=== PATIENT | male | born 1955 | race Caucasian/White ===

== ENCOUNTER 2016-08-23 11:47 | Inpatient (IN) | payer OTHER ==
[~2016-08-23] VITALS: Ht 175.3 cm; Wt 106.4 kg
[~2016-08-23 11:47] MED LIST: ALBU1AER9 INH; ASPI81TA21 PO; CLOP1TAB15 PO; FLUT50SP14 NAE; LISI-461 PO; LORA10CA2 PO; LPT/40 PO; MCR5 PO; METF850T PO; METO25TA56 PO
[2016-08-23 14:37] VITALS: BP 115/74; PULSE 69; TEMP 36.9; O2SAT 98; BMI 34.0
[2016-08-23] MEDS ORDERED: NITROGLYCERIN 0.4 MG SL PER TAB CHARGE SL PRN (14:45)
[2016-08-23] MEDS ORDERED: ONDANSETRON INJ 2 MG/ML 2 ML VIAL IV PRN (14:45)
[2016-08-23] MEDS ORDERED: ACETAMINOPHEN 325 MG TAB PO PRN (14:45)
[2016-08-23] MEDS ORDERED: PATIENT'S HEIGHT AND/OR WEIGHT NEEDED SCH (14:50)
[2016-08-23] MEDS ORDERED: INSDGIPEN SC (15:33)
[2016-08-23] MEDS ORDERED: ONDA8TAB62 SL (15:33)
[2016-08-23] MEDS ORDERED: OMEP40CA41 PO (15:33)
[2016-08-23 15:34] LABS: BASO % 0.4 %; BASO ABS # 0.04 K/uL (0-0.2); EOS % 1.9 %; HEMATOCRIT 38.3 % (42-52); IG% 0.3 %; LYMPH % 27.1 %; LYMPH ABS # 2.62 K/uL (1.2-3.4); MEAN CELL VOLUME 92.3 fL (80-100); MEAN CORPUSCULAR HEMOGLOBIN 32.8 pg (25-34); MEAN PLATELET VOLUME 9.8 fL (7.4-10.4); MONO % 6.3 %; PLATELET COUNT 242 K/uL (130-400); RED BLOOD COUNT 4.15 M/uL (4.7-6.1); WHITE BLOOD COUNT 9.68 K/uL (4.8-10.8)
[2016-08-23 15:35] LABS: COMPLETE YES; MEAN CORPUSCULAR HGB CONC 35.5 g/dl (32-36)
[2016-08-23] MEDS ORDERED: GLUCOSE 40% GEL 15 GM TUBE PO PRN (15:45)
[2016-08-23] MEDS ORDERED: GLUCOSE 10 TABS/TUBE PO PRN (15:45)
[2016-08-23] MEDS ORDERED: GLUCAGON FOR INJ 1 MG VIAL SQ PRN (15:45)
[2016-08-23] MEDS ORDERED: DEXTROSE 50% 50 ML SYR IV PRN (15:45)
[2016-08-23 15:49] LABS: INR 0.9 (0.9-1.1); PARTIAL THROMBOPLASTIN RATIO 0.9
[2016-08-23 16:00] VITALS: O2SAT 98
[2016-08-23 16:00] LABS: ALB/GLOB RATIO 1.1 (0.9-2); BUN/CREATININE RATIO 11.8 (10-20); CALCIUM 8.4 mg/dl (8.5-10.1); CKMB/CK RATIO 8.4 (0-3.0); CREATININE 1.5 mg/dl (0.60-1.40); POTASSIUM 4.5 mmol/L (3.5-5.1)
[2016-08-23] MEDS ORDERED: NITROGLYCERIN OINT 2% 1GM PACKET EXT SCH (16:00)
[2016-08-23] MEDS ORDERED: SODIUM CHLORIDE 0.9% 1000ML 1,000 ML IV SCH (16:00)
[2016-08-23] MEDS ORDERED: PHARMACY GLYCEMIC MGMT CONSULT PRN (16:09)
--- NOTE | 2016-08-23 16:09 | Pharmacy Progress Note ---
Glycemic Control Intl Consult Date of Service August 23, 2016. Scope Glycemic Pharmacist consulted by Shavonne Wilcox on 08/23/2016 for glycemic control and to write orders per [facility] inpatient glycemic control protocol Objective Weight (Kilograms): 104.500 Accuchecks BSG (last 24hrs): Test 08/23/16 15:25 Laboratory Data (last 24hrs) Test 08/23/16 15:25 White Blood Count 9.68 K/uL Red Blood Count 4.15 M/uL Hemoglobin 13.6 g/dL Hematocrit 38.3 % Mean Corpuscular Volume 92.3 fL Mean Corpuscular Hemoglobin 32.8 pg Mean Corpuscular Hemoglobin Concent 35.5 g/dl Platelet Count 242 K/uL Mean Platelet Volume 9.8 fL Neutrophils (%) (Auto) 64.0 % Lymphocytes (%) (Auto) 27.1 % Monocytes (%) (Auto) 6.3 % Eosinophils (%) (Auto) 1.9 % Basophils (%) (Auto) 0.4 % Neutrophils # (Auto) 6.20 K/uL Lymphocytes # (Auto) 2.62 K/uL Monocytes # (Auto) 0.61 K/uL Eosinophils # (Auto) 0.18 K/uL Basophils # (Auto) 0.04 K/uL HbA1c Test 08/23/16 15:25 Recent Pertinent Medications Outpatient Anti-diabetic Regimen: * Lantus 20 units qHS (confirmed with patient); Diabeta 10 mg BID and metformin 850 mg PO BID * A1c = 6.4 % 01/12/2016 Risk Factors for Insulin Resistance: * patient just had NSTEMI * Diet: type 2 diabetic diet Assessment & Plan ASSESSMENT: * ADA & AACE recommend a goal blood sugar range 140-180 mg/dl for the majority of critically ill & non-critically ill patients. However, more stringent targets may be selected in individual cases. Will utilize more stringent goal of 110-140 mg/dl based on patient age & comorbidities. Additionally, tighter glycemic control is warranted to facilitate recovery from NSTEMI. * Mr Christianson is a direct admission from [facility] after having an NSTEMI. Per Pedro, the patient home regimen keeps him well controlled with an A1C of 6.4%. I confirmed the home Lantus dose with the patient as there was notation for an increasing dose in the MAR. * Due to the patient's illness, I utilized a more strict correctional insulin with a weight-based stress of 2 insulin. The Lantus dose was decreased to 15 units as I was unsure if the patient would require less while hospitalized ( home regimen appears basal heavy). In order to ensure excellent blood sugar control, I ordered overnight Accuchecks. PLAN FOR INPATIENT GLYCEMIC CONTROL: * Holding outpatient oral diabetes medications * Basal insulin with LANTUS 15 units SQ qHS * Correctional Insulin with NOVOLOG per scale ACHS * Goal Range: Low 110 mg/dL - High 140 mg/dL * Correction Factor: 20 mg/dL/unit * Nutritional / Prandial insulin per carb ratio of 1 unit per 7 grams CHO consumed * Please note that the plan above was derived based on current level of insulin resistance and hospital stress. These recommendations are appropriate for inpatient admission only. Plan of care upon discharge will need to be reassessed to avoid potential outpatient hypo/hyperglycemia. Thank you.
[2016-08-23] MEDS: INSULIN ASPART 100 UNITS/ML 3 ML PEN SC SCH ×3 (16:15→23:34)
[2016-08-23] MEDS ORDERED: NURSING VERBAL MED ORDER ONE (16:30)
--- NOTE | 2016-08-23 16:35 | CARDIOLOGY CONSULTATION ---
DATE OF CONSULTATION: 08/23/2016 REFERRING PHYSICIAN: Pedro valle. REASON FOR CONSULTATION: NSTEMI. CHIEF COMPLAINT ON ADMISSION: Chest discomfort. HISTORY OF PRESENT ILLNESS: Mr. Christianson is a 61-year-old gentleman with a history of coronary artery disease and prior inferior infarction, status post RCA stenting. He developed chest discomfort in the a.m. of 08/22/2016. He described tightness as well as a heartburn-like feeling. The pain eventually radiated down his bilateral upper extremities. He was brought to the Emergency Department at [facility]. He was administered supplemental oxygen, which improved his symptoms. Initial troponin was undetectable; however, repeat the troponins were subsequently elevated. His peak troponin was approximately 11. He was transferred to [facility] for further evaluation and treatment. Currently, the patient is resting comfortably. Denies chest pain at this time. Family is present at the bedside. reports issues with intermittent discoloration, describing him as ashen on several occasions over the past few weeks. The patient denies any change in his functional capacity. He admits to noncompliance with all medications for approximately 2 weeks. REVIEW OF SYSTEMS: The pertinent positives noted above. A comprehensive 10-system review is otherwise negative. PAST MEDICAL HISTORY: 1. Chronic CAD with prior drug-eluting stent implantation to the right coronary artery. 2. Chronic kidney disease, stage III. 3. Diabetes, type 2. 4. Noncompliance. 5. Dyslipidemia. 6. GERD. PAST SURGICAL HISTORY: Cardiac catheterization, status post drug eluting stent implantation to the right coronary artery. SOCIAL HISTORY: Former tobacco abuse, [id number] history. He quit in 1990. Denies alcohol or illicit drug use. FAMILY HISTORY: Negative for premature CAD or sudden cardiac . ALLERGIES: No known drug allergies. OUTPATIENT MEDICATIONS: 1. Glyburide 5 mg 2 tablets in the a.m. and 2 tablets in the evening. 2. Glucophage 850 mg twice daily. 3. Lantus 20 mg subQ. 4. Lipitor 80 mg daily. 5. Lisinopril 5 mg daily. 6. Toprol-XL 12.5 mg daily. 7. Aspirin 81 mg daily. LABORATORY DATA: Creatinine 1.71 on 08/22/2016. White blood cell count 9.9, hemoglobin 13.6, and platelet count 238. Peak troponin 11.50. LDL is 170. ECG on presentation, 08/22/2016 demonstrates sinus rhythm with age indeterminate inferior infarct. PHYSICAL EXAMINATION: VITAL SIGNS: Temperature is 36.9 degrees centigrade, pulse 69 beats per minute and regular, respiratory rate is 16 breaths per minute, blood pressure 115/74 and SaO2 is 98% on 2 liters. GENERAL: NAD, awake, alert and oriented x3. THROAT: His mucous membranes are moist. No scleral icterus. Conjunctivae pink. NECK: Supple. No JVD, no HJR, and no carotid bruit. HEART: Regular with a normal S1 and S2. There is no murmur, rub, or gallop. LUNGS: Clear without rales, rhonchi or wheeze. ABDOMEN: Soft and nontender. There is no rebound or guarding. EXTREMITIES: Warm and dry. There is no clubbing, cyanosis, or edema. Dorsalis pedis pulses are 2/4. He has a 2/4 right-sided radial pulse. His ulnar pulses are not palpable on the right side. His Vijay test is abnormal on the right. Left upper extremity Vijay test was normal with palpable radial and ulnar pulses. NEUROLOGIC: Demonstrates no focal deficit. FINAL IMPRESSION: 1. [id number] elevation myocardial infarction. 2. Noncompliance. 3. Diabetes type 2, requiring insulin. 4. Dyslipidemia - uncontrolled. 5. Former tobacco abuse. 6. 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 7. Acute on chronic renal insufficiency. PLAN AND RECOMMENDATIONS: A resting 2D transthoracic echo has been ordered with results pending at this time. Intravenous heparin has been ordered and will be administered with bolus. 1/2 inch nitro paste will be applied. Other cardiovascular medications including beta-chica, aspirin, and statin therapy will be restarted. The risks, benefits and alternatives to cardiac catheterization with percutaneous intervention indicated were discussed at length with the patient and family at the bedside. They are agreeable to procedure. A Barbeau will be performed in his right upper extremity in the a.m. Intravenous hydration has been initiated. A repeat basic metabolic panel will be performed in the a.m. prior to procedure. Thank you for allowing me to take part in the care of your patient.
--- NOTE | 2016-08-23 16:54 | History and Physical ---
History & Physical Date & Time of Service: August 23, 2016 at 15:30 Chief Complaint: Myocardial Infarction Primary Care Physician: Lisandro Emanuel M.D. History of Present Illness Source: patient, spouse ( at bedside), clinic records, hospital records ( [facility]) This is a 61 year old male with PMH of CAD s/p JENNIFER to RCA in 2011, DM type 2, dyslipidemia, GERD, medication non-compliance, who presents as a transfer from [facility] for NSTEMI. Patient was admitted yesterday to [facility] after presenting with chest pain. CXR yesterday at [facility] was unremarkable. EKG 08/22/16 at [facility] showed sinus rhythm with 1st degree AVB, possible age indeterminate inferior infarct, and T wave inversion in III, no ST changes. Initial troponin was negative but trended up to 2.05 yesterday evening and 11.5 this morning. Creat was elevated to 1.7 at [facility] yesterday. Baseline creat is 1.4. LDL was 170. Patient's blood sugar was elevated in 300s- 400s. Yesterday evening at outside hospital patient was given ASA 324 mg and 500 mL NSS. This morning at outside hospital patient was given Toprol 12.5 mg, lisinopril 5 mg, aspirin 81 mg, and Lipitor 80 mg. He was on Heparin SQ for DVT prophylaxis. Heparin drip was ordered but not administered prior to transfer. Patient states chest pain started at 3 pm yesterday while he was active covering his boat and carrying plants. Pain was located in substernal area with radiation to bilateral arms and between his shoulder blades. He describes pain as tightness and "indigestion". He states it felt similar to prior [place]. He reports associated SOB, diaphoresis, and dizziness. states his color appeared ashen. Chest pain and associated symptoms resolved after 5 hours. He is usually able to climb 1 flight of stairs, burgos, fish, garden without CP or KUMAR. Patient was nauseous earlier today, which is a chronic intermittent problem for him, which resolved with Zofran given at [facility]. Currently he is chest pain free and otherwise feeling comfortable lying in bed. Denies fever, chills, URI symptoms, cough, orthopnea, palpitations, reflux, vomiting, abdominal pain, diarrhea, dysuria, frequency, calf pain, edema, history of abnormal bleeding. Pt reports noncompliance with all medications for approximately 2 weeks. States he does not like taking pills. Has not been checking blood sugar at home. Past Medical/Surgical History Medical Problems: (1) Anemia Status: Chronic (2) CAD (coronary artery disease) Status: Chronic (3) CHRONIC RHINITIS Status: Chronic (4) CKD (chronic kidney disease), stage III Status: Chronic (5) DIAB CANDIS WO COMPL, TYPE II OR UNSPEC TYPE, NOT UNCNTRLD Status: Chronic (6) Diabetic renal disease Status: Chronic (7) GERD (gastroesophageal reflux disease) Status: Chronic (8) Hyperlipidemia Status: Chronic (9) Myocardial infarction Status: Resolved (10) repair acetabular R fx Status: Resolved Surgical Problems: (1) H/O cardiac catheterization Status: Resolved (2) H/O colonoscopy Status: Resolved (3) History of cholecystectomy Status: Resolved (4) History of tonsillectomy Status: Resolved (5) S/P coronary artery stent placement Permanent Comment: 12/2011 Right coronary artery JENNIFER Status: Resolved Family History FH: CAD (coronary artery disease) FATHER ([place], age 50) UNCLE ([place], age 38) Hypertension FATHER Social History Smoking Status: Former Smoker (quit in 1989) Alcohol Use: none Drug Use: other (prior marijuana approx 30 years ago) Marital Status: Housing status: lives with significant other Occupational Status: disabled Immunizations History of Influenza Vaccine: No History of Tetanus Vaccine?: Yes Tetanus Immunization Date: Nov 30, 2010 History of Pneumococcal: No History of Hepatitis B Vaccine: No Multi-Drug Resistant Organisms History of MDRO: No Allergies Coded Allergies: No Known Allergies (Unverified , 10/30/02) Home Medications Scheduled Aspirin Enteric Coated (Ecotrin Or Generic), 81 MG PO DAILY Atorvastatin (Lipitor), 80 MG PO QAM Glyburide (Diabeta *), 10 MG PO BID Insulin Glargine (Lantus Solostar), 20 UNIT SC HS Lisinopril (Zestril), 5 MG PO DAILY Metformin Hcl (Glucophage), 850 MG PO BIDM Metoprolol Tartrate (Lopressor) (Lopressor), 12.5 MG PO BID Omeprazole (Prilosec), 40 MG PO DAILY Scheduled PRN Loratadine (Claritin), 10 MG PO DAILY PRN for Nasal Congestion Ondansetron Odt (Zofran Odt), 8 MG SL BID PRN for Nausea Review of Systems Constitutional: + sweats, No chills, No fever Eyes: No worsening of vision ENT: No nasal symptoms Respiratory: + shortness of breath, No cough Cardiovascular: + chest pain, No edema, No palpitations Abdomen: + nausea (chronic intermittent), No GI bleeding, No diarrhea, No pain , No vomiting Musculoskeletal: + problem reported (chronic intermittnet right thigh pain s/p hip fracture), No calf pain Genitourinary - Male: No dysuria, No urinary frequency Neurologic: + problem reported (dizziness- resolved) Hematologic / Lymphatic: No abnormal bleeding/bruising Integumentary: No rash Physical Exam Vital Signs Date Time Temp Pulse Resp B/P Pulse Ox O2 Delivery O2 Flow Rate FiO2 08/23/16 14:37 36.9 69 16 115/74 98 Nasal Cannula 2.0 General Appearance: WD/WN, no apparent distress, + pertinent finding (alert cooperative 61 year old male, lying in bed, no distress, at bedside) Head: normocephalic, atraumatic Eyes: normal inspection ENT: hearing grossly normal, pharynx normal Neck: no JVD, trachea midline Respiratory/Chest: lungs clear, normal breath sounds, no respiratory distress, no accessory muscle use Cardiovascular: regular rate, rhythm (distant heart sounds), no murmur, normal peripheral pulses Abdomen/GI: normal bowel sounds, non tender, soft Extremities/Musculoskelatal: no calf tenderness, normal capillary refill, no pedal edema Neurologic/Psych: alert, normal mood/affect, oriented x 3, + pertinent finding (no focal deficit on gross examination) Skin: normal color, warm/dry, no rash (no rash on the chest) Diagnostics Laboratory Results Results Past 24 Hours Test 08/23/16 14:40 Range/Units Creatine Kinase MB Ratio 0-3.0 EKG NSR, possible prior inferior infarct, T wave inversion in III and aVF, no ST changes Impression Assessment and Plan NSTEMI History of CAD s/p JENNIFER to RCA in 2011 with diffuse residual disease Has been noncompliant with all medications x 2 weeks; future compliance strongly recommended and patient is agreeable Troponin trended up to 11.5 at [facility] this morning -> 15.3 at [facility] EKG- inferior T wave inversion, no ST change Currently chest pain free Check echo Initiate IV heparin with bolus, 1/2 inch nitro paste Continue beta chica, aspirin, statin which were resumed at [facility] this morning Hold FOX-I due to SHMUEL Consult cardiology; Dr. Means aware, appreciate input NPO after midnight for cardiac cath tomorrow am SHMUEL ON CKD STAGE III Creat increased to 1.7 yesterday (baseline 1.4) Given 500 mL NSS at [facility] yesterday Creat improved to 1.5 Hold lisinopril Gentle IVF's at 80 mL/hour x 1 bag Recheck PRP at 0500 tomorrow AM prior to cardiac cath DM TYPE 2 With hyperglycemia due to medication non-compliance x 2 weeks Supposed to be on Lantus 20 units HS, metformin 850 mg BIDM, glyburide 10 mg BIDM Check A1c Consult pharmacy for glycemic control DYSLIPIDEMIA LDL is 170 at [facility] Has been non-compliant with statin Lipitor 80 mg resumed at [facility] this am GERD Resume PPI DVT PROPHYLAXIS On IV heparin FULL CODE DISPOSITION Admit to telemetry Follows with Dr. Emanuel for primary care Patient seen in collaboration with Dr. Alexander. Please see her addendum. I have seen, examined and discussed this patient with Otilia Wilcox and I agree with the above note. Patient is a transfer for NSTEMI. Vitals stable. PE: General- awake; alert; NAD Eyes- EOMI; no scleral icterus Neck- no stridor; trachea midline Lungs- CTA bilaterally; no wheezes/crackles Heart- RRR; no m/r/g Abdomen- soft; NTND; nBS Back- normal inspection Extremities- no c/c/e; no deformity Neuro- no focal deficits Skin- no appreciable rash or bruise Labs, imaging and EKG reviewed. NSTEMI: Cardiology consulted. TTE with wall motion abnormalities. Start heparin drip. Plan for LHC in am. SHMUEL: Gentle IVF's. Hold lisinopril. Downtrending. Uncontrolled DM: Glycemic pharmacy consulted. Titrate insulin. DM educator consult. Agree with remainder of plan as outlined above. Advanced Directives Existing Living Will: No Existing Power of Line Tester: No VTE Prophylaxis VTE Risk Assessment Done? Y/N: Yes Risk Level: Moderate Given or contraindicated: Other Anticoagulation
[2016-08-23] MEDS ORDERED: HEPARIN IV BOLUS 7,000 UNIT in SYRINGE 0 ML IV ONE (17:00)
--- NOTE | 2016-08-23 17:04 | ECHOCARDIOGRAM REPORT ---
*NOTICE TO RECEIVING [employer] This information is strictly Confidential and protected under [place] law. [place] law prohibits you from making any further disclosure of this information unless further disclosure is expressly permitted by the written consent of the person to whom it pertains or is authorized by law. A general authorization for the release of medical or other information is not sufficient for this purpose. Hospital accepts no responsibility if the information is made available to any other person, INCLUDING THE PATIENT. Interpretation Summary * Name: MARIA DIOR Study Date: 08/23/2016 04:05 PM BP: 115/74 mmHg * Patient Location: C.2T\S\E219\S\1 HR: 69 * : 1955 (M/d/yyyy) Gender: Male Height: 69 in * Age: 61 yrs Ethnicity: [place] Weight: 230 lb * Ordering Physician: Piotr Means DO * Performed By: Bhavani Irving * * Reason For Study: AMI * BSA: 2.2 m2 * The study was technically adequate. * Compared to prior study, there is no significant change. * -- Conclusions -- * Ejection Fraction = 55-60%. * There is mild concentric left ventricular hypertrophy. * Moderate inferior and posterior hypokinesis. * There is mild tricuspid regurgitation. * Grade I diastolic dysfunction, (abnormal relaxation pattern). Procedure Details * A complete two-dimensional transthoracic echocardiogram was performed (2D, M-mode, Doppler and color flow Doppler). * A contrast injection of Definity was performed to improve assessment of LV function. * Contrast was injected into an intravenous site in the left arm. * One vial of Definity ultrasound contrast was diluted in normal saline to a total volume of 10 ml. A total of '2' ml of solution was administered during imaging. * Lot # [id number] of Definity utilized for procedure. * Expiration date 08/09. * The attending nurse who injected the contrast agent was JEFF ANDERSON RN. Left Ventricle * The left ventricle is normal in size. * There is mild concentric left ventricular hypertrophy. * Ejection Fraction = 55-60%. * Left ventricular systolic function is normal. * Moderate inferior and posterior hypokinesis. Right Ventricle * The right ventricle is mildly dilated. * The right ventricular systolic function is normal as assessed by tricuspid annular plane systolic excursion (TAPSE) (normal >1.5 cm). Atria * The left atrial size is normal. * Right atrial size is normal. * There is no evidence of atrial septal defect, but resolution does not allow assessment for a patent foramen ovale. Mitral Valve * The mitral valve is normal. * There is no mitral valve stenosis. * Significant mitral regurgitation is absent. Tricuspid Valve * The tricuspid valve is normal. * There is no tricuspid stenosis. * There is mild tricuspid regurgitation. * Doppler findings do not suggest pulmonary hypertension. Aortic Valve * The aortic valve is trileaflet. * Aortic stenosis is absent. * There is no significant aortic regurgitation. Pulmonic Valve * The pulmonary valve is not well seen, but the Doppler examination is normal without significant regurgitation or stenosis. Great Vessels * The aortic root is normal size. Pericardium/Pleural * There is no pericardial effusion. Great Vessels * Normal inferior vena cava diameter and respiratory variation suggests normal central venous pressure. Left Ventricular Diastolic Function * Grade I diastolic dysfunction, (abnormal relaxation pattern). MMode 2D Measurements and Calculations IVSd 1.3 cm IVSs 1.8 cm LVIDd 4.0 cm LVIDs 2.4 cm LVPWd 1.4 cm LVPWs 2.2 cm IVS/LVPW 0.92 FS 38.4 % EDV(Teich) 68.9 ml ESV(Teich) 21.2 ml EF(Teich) 69.3 % EDV(cubed) 62.7 ml ESV(cubed) 14.6 ml EF(cubed) 76.6 % % IVS thick 39.7 % % LVPW thick 53.7 % LV mass(C)d 197.2 grams LV mass(C)dI 90.0 grams/m\S\2 LV mass(C)s 210.3 grams LV mass(C)sI 95.9 grams/m\S\2 SV(Teich) 47.7 ml SI(Teich) 21.8 ml/m\S\2 SV(cubed) 48.1 ml SI(cubed) 21.9 ml/m\S\2 ACS 1.7 cm LA dimension 3.4 cm asc Aorta Diam 3.4 cm LVOT diam 2.0 cm LVOT area 3.2 cm\S\2 LVAd ap4 28.6 cm\S\2 LVLd ap4 8.1 cm EDV(MOD-sp4) 82.6 ml EDV(sp4-el) 85.5 ml LVAs ap4 16.7 cm\S\2 LVLs ap4 6.4 cm ESV(MOD-sp4) 35.2 ml ESV(sp4-el) 36.6 ml EF(MOD-sp4) 57.5 % EF(sp4-el) 57.2 % LVAd ap2 27.7 cm\S\2 LVLd ap2 7.9 cm EDV(MOD-sp2) 81.2 ml EDV(sp2-el) 82.2 ml LVAs ap2 17.3 cm\S\2 LVLs ap2 6.5 cm ESV(MOD-sp2) 39.0 ml ESV(sp2-el) 39.3 ml EF(MOD-sp2) 51.9 % EF(sp2-el) 52.1 % LVLd %diff -2.55 % EDV(MOD-bp) 80.7 ml LVLs %diff 0.86 % ESV(MOD-bp) 37.2 ml EF(MOD-bp) 54.0 % SV(MOD-sp4) 47.5 ml SI(MOD-sp4) 21.7 ml/m\S\2 SV(MOD-sp2) 42.1 ml SI(MOD-sp2) 19.2 ml/m\S\2 SV(MOD-bp) 43.6 ml SI(MOD-bp) 19.9 ml/m\S\2 SV(sp4-el) 48.9 ml SI(sp4-el) 22.3 ml/m\S\2 SV(sp2-el) 42.8 ml SI(sp2-el) 19.5 ml/m\S\2 Doppler Measurements and Calculations MV E max funmilayo 64.0 cm/sec MV A max funmilayo 88.9 cm/sec MV E/A 0.72 MV dec time 0.23 sec Ao V2 max 107.8 cm/sec Ao max PG 4.7 mmHg Ao max PG (full) -0.25 mmHg JADE(V,A) 3.3 cm\S\2 JADE(V,D) 3.3 cm\S\2 LV V1 max PG 4.9 mmHg LV V1 max 110.7 cm/sec PA V2 max 69.0 cm/sec PA max PG 1.9 mmHg TR max funmilayo 222.5 cm/sec
[2016-08-23] MEDS: NITROGLYCERIN 2% OINTMENT 30GM TUBE EXT SCH ×2 (17:10→21:21)
[2016-08-23] MEDS: HEPARIN 25,000 UNIT/500ML D5W 500 ML IV PRN (17:12)
[2016-08-23] MEDS ORDERED: ZOLPIDEM TARTRATE 5 MG TAB PO PRN (18:30)
[2016-08-23 19:19] VITALS: BP 128/64; PULSE 72; TEMP 36.6; O2SAT 97
[2016-08-23] MEDS: METOPROLOL TARTRATE 25 MG TAB PO SCH (20:23)
[2016-08-23] MEDS ORDERED: INSULIN GLARGINE SOLOSTAR 100 UNITS/ML 3 ML PEN SC SCH ×2 (21:00)
[2016-08-23 23:28] LABS: PARTIAL THROMBOPLASTIN RATIO 3.7
[2016-08-23 23:35] VITALS: BP 99/60; PULSE 66; TEMP 36.6; O2SAT 97
[2016-08-24] VITALS (12 sets, daily range): BP systolic 91–121; BP diastolic 57–74; PULSE 67–75; TEMP 36.6–37.2; O2SAT 92–98; Ht 175.3 cm; Wt 106.4 kg
[2016-08-24] MEDS: HEPARIN 25,000 UNIT/500ML D5W 500 ML IV PRN (00:57)
[2016-08-24] MEDS: NITROGLYCERIN 2% OINTMENT 30GM TUBE EXT SCH ×4 (04:00→21:04)
[2016-08-24] MEDS: INSULIN ASPART 100 UNITS/ML 3 ML PEN SC SCH ×5 (04:06→21:07)
[2016-08-24 05:15] LABS: HEMATOCRIT 35.6 % (42-52); MEAN CELL VOLUME 92.2 fL (80-100); MEAN CORPUSCULAR HEMOGLOBIN 31.1 pg (25-34); MEAN CORPUSCULAR HGB CONC 33.7 g/dl (32-36); MEAN PLATELET VOLUME 9.4 fL (7.4-10.4); PLATELET COUNT 217 K/uL (130-400); RED BLOOD COUNT 3.86 M/uL (4.7-6.1); WHITE BLOOD COUNT 11.12 K/uL (4.8-10.8)
[2016-08-24 05:39] LABS: BUN/CREATININE RATIO 12.3 (10-20); CALCIUM 7.9 mg/dl (8.5-10.1); CREATININE 1.7 mg/dl (0.60-1.40); POTASSIUM 3.9 mmol/L (3.5-5.1)
[2016-08-24] MEDS: ASPIRIN 81 MG ECTAB PO SCH (07:32)
[2016-08-24] MEDS ORDERED: HEPARIN SOD (PORCINE) 1000 UNIT/ML 10 ML VIAL ONE (07:46)
[2016-08-24] MEDS ORDERED: NiCARDipine HCL INJ 2.5 MG/ML 10 ML AMP ONE (07:46)
[2016-08-24] MEDS ORDERED: NITROGLYCERIN/D5W 100MCG/ML 20ML SYR ONE (07:47)
[2016-08-24] MEDS ORDERED: MIDAZOLAM HCL 1 MG/ML 2ML VIAL ONE (07:47)
[2016-08-24] MEDS ORDERED: FENTANYL CITRATE INJ 50 MCG/1 ML 2 ML VIAL ONE (07:48)
[2016-08-24 07:49] LABS: ESTIMATED AVERAGE GLUCOSE 263 mg/dl; HA1C FLAG Normal (Normal)
--- NOTE | 2016-08-24 08:00 | Procedure Note ---
Pre-Mod Sedation Assessment General Date of Moderate Sedation: August 24, 2016. Vital Signs: Vital Signs Past 12 Hours Date Time Temp Pulse Resp B/P Pulse Ox O2 Delivery O2 Flow Rate FiO2 08/24/16 07:51 36.7 67 16 119/74 98 Nasal Cannula 2.0 08/24/16 04:52 36.6 71 18 91/57 97 Nasal Cannula 2.5 08/24/16 04:21 36.6 71 18 91/57 97 Nasal Cannula 2.5 08/24/16 04:00 Nasal Cannula 2.0 08/23/16 23:59 Nasal Cannula 2.0 08/23/16 23:35 36.6 66 18 99/60 97 Nasal Cannula 2.0 08/23/16 20:00 Nasal Cannula 2.0 Review Cardiovascular: regular rate, rhythm, no edema, normal peripheral pulses Abdomen: normal bowel sounds, non tender, soft Lungs: chest non-tender, lungs clear Pre-Sedation Airway Assessment Oral Cavity: Dentures Hx of Sleep Apnea: No Smoking Status: Former Smoker Mallampati Classification: Class III ASA Classification: Class IV Procedure Planning Contraindications-for Mod Sed: None Yes Notes The planned sedation has been discussed with the patient and consent obtained. I have identified the patient, determined the appropriateness of sedation and have assessed the patient immediately prior to the procedure. All medicine(s) and interventions are by my order.
[2016-08-24] MEDS ORDERED: LISINOPRIL 10 MG TAB PO SCH (09:00)
[2016-08-24] MEDS: METOPROLOL TARTRATE 25 MG TAB PO SCH ×2 (09:00→21:08)
[2016-08-24] MEDS ORDERED: SODIUM CHLORIDE 0.9% 1000ML 250 ML IV PRN (09:25)
[2016-08-24] MEDS ORDERED: ONDANSETRON INJ 2 MG/ML 2 ML VIAL IV PRN (09:30)
[2016-08-24] MEDS ORDERED: ACETAMINOPHEN 325 MG TAB PO PRN (09:30)
[2016-08-24] MEDS ORDERED: ATROPINE SULFATE 0.1 MG/ML 5ML SYR IV PRN (09:30)
--- NOTE | 2016-08-24 09:34 | Cardiac Catheterization ---
Procedure Note Procedure Date August 24, 2016. Pre-Procedure Diagnosis Non STEMI AUC Score 9 Post-Procedure Diagnosis Severe CAD Procedure(s) Performed Coronary Angiography (Moderate sedation, Start time 0810, Stop time, 0916), Left Heart Cath, Femoral Artery Angiography Filter Press Tender Dr. Means Photo Specialist(s) Dmitry Winters RN as qualified observer Estimated Blood Loss 5cc Medication(s) Fentanyl, Versed, Lidocaine 1% Summary of Findings 100% ostial RCA occlusion with Left to right collaterals. 60% proximal OM Hemodynamics Rest Ao: 98/60/74 Final Ao: 95/63/77 LV: 97/13/20 Recommendations Medical therapy and/or Counseling Specimens None Radiation Exposure (mGy) 1086 Contrast (mls) 55 Procedural Complication(s) None Disposition PCU ACC Data Cardiac Status Clinical evaluation leading to the procedure CAD Presntation: Non STEMI Anginal Classification: CCS IV Heart Failure: No Cardiogenic Shock w/in 24Hrs: No Cardiac Arrest w/in 24Hrs: No Imaging studies past 6 months: No Coronary Anatomy Dominant: Right Left Main (% Stenosis): Ostial (0%), Proximal (0%), Mid (10%), Distal ( calcified distal left main with 30% stenosis) LAD (% Stenosis): Ostial (mildly calcified with 20% stenosis), Proximal (30%), Mid (20%), Distal (10%) D1 (% Stenosis): Ostial (small vessel withg diffuse mild luminal irregularities , (10%)) D2 (% Stenosis): Ostial (30%), Proximal (10%), Mid (10%), Distal (10%) Circumflex (% Stenosis): Ostial (30%), Proximal (10%), Mid (10%), Distal (10%) OM1 (% Stenosis): Ostial (40%), Proximal (60%), Mid (30%), Distal (10%) RCA (% Stenosis): Ostial (100%), Distal (100%, vessel occluded near ostium of RPDA, does not fill via Left to Right collaterals) R PDA (% Stenosis): Ostial (vessel fills via left to right collaterals) Diagnostic Status: Urgent Closure Device Percutaneous Entry Location: Femoral Closure Device: Mynx Intraprocedure Events Significant Dissection: No Perforation: No
[2016-08-24] MEDS: LORATADINE 10 MG TAB PO PRN (09:54)
[2016-08-24] MEDS: PANTOprazole SOD 40 MG TAB PO SCH (09:55)
[2016-08-24] MEDS: ATORVASTATIN 40 MG TAB PO SCH (09:55)
[2016-08-24] MEDS ORDERED: CLOPIDOGREL BISULFATE 75 MG TAB PO ONE (17:19)
[2016-08-24] MEDS ORDERED: INSULIN GLARGINE SOLOSTAR 100 UNITS/ML 3 ML PEN SC SCH (21:00)
--- NOTE | 2016-08-24 21:32 | Progress Note ---
Internal Med Progress Note Date of Service: August 24, 2016. Provider Documentation: SUBJECTIVE: feels fine no complain of chest pain or SOB s/p cardiac cath today cath site at rt groin -has mild ache , no swelling or bleeding no KUMAR on activity Had a long discussion regarding reducing the risk for atherosclerotic heart disease -given diffuse CAD pt is counselled regarding medication compliance , taking meds exactly it is prescribed, not to stop medication without consulting with physician Diabetic management , cholesterol control , need to lower LDL to goal < 70 to help limit progression of ACS pt is in agreement willing to follow up with Cardiology closely after discharge referral made for cardiac rehab OBJECTIVE: Vital Signs-as noted below Exam: General-pleasant, no sign of distress, conversing Eyes-sclera non icteric Lungs-CTA ,no wheeze or rales Heart-regular S1/S2 Abdomen-soft, non tender Extremities-right groin cath site intact , no swelling, no erythema, no drainage Neuro-AAO x3, no focal neurological deficit Lab data as noted below. ASSESSMENT & PLAN: NSTEMI History of CAD s/p JENNIFER to RCA in 2011 with diffuse residual disease Has been noncompliant with all medications x 2 weeks; future compliance strongly recommended and patient is agreeable transferred from [facility] for NSTEMI need for cardiac cath pt -presented with chest pain , Troponin trended up to 11.5 at [facility] -> 15.3 at [facility] EKG- inferior T wave inversion, no ST change remains chest pain free after arrival to [facility] echo: 08/23/16 * The study was technically adequate. * Compared to prior study, there is no significant change. * Ejection Fraction = 55-60%. * There is mild concentric left ventricular hypertrophy. * Moderate inferior and posterior hypokinesis. * There is mild tricuspid regurgitation. * Grade I diastolic dysfunction, (abnormal relaxation pattern). pt was treated with IV heparin with bolus after arrival to floor , ordered for 1/2 inch nitro paste pt is continued on beta chica, aspirin, statin which were resumed at [facility] Hold FOX-I due to SHMUEL Consulted cardiology; Dr. Means s/p cardiac cath today am shows severe CAD 100 % ostial RCA occlusion with left to right collaterals 60 % proximal OM stenosis recommend medical management started on Imdur 30 mg PO daily ( nitro paste Discontinued ) high intensity statin therapy with max dose Lipitor 80 mg daily for added Plavix, cont statin Beta chica Toprol XL 25 mg daily ACEI kept on hold for ACEI may consider resuming in future as renal function stabilizes /improves to baseline will need close follow up with Cardiology -follows with Dr Mae in office Cardiac rehab consult pt is counselled for medication compliance , diet , exercise and life style modification SHMUEL ON CKD STAGE III Creat elevated 1.7 cont IV fluid as pt got contrast dye load for cardiac cath today cont to hold lisinopril follow PRP daily DM TYPE 2/POORLY CONTROLLED presented with hyperglycemia due to not taking any meds for x 2 weeks Supposed to be on Lantus 20 units HS, metformin 850 mg BIDM, glyburide 10 mg BIDM A1c 10 .9 indicated poor glycemic control Metformin , glyburide is kept on hold Appreciate Consult form pharmacy for glycemic control appreciate outreach educator consult for diabetic management DYSLIPIDEMIA LDL is 170 at [facility] Rafal Has been non-compliant with statin Lipitor 80 mg PO daily goal LDL < 70 given severe CAD will need repeat Fasting lipid panel checked on 3-6 months to assess improvement of LDL pt is counselled for low fat diet , lifestyle modification and exercise Cardiac rehab consulted GERD on PPI DVT PROPHYLAXIS IV heparin D/mary ordered Sub q heparin for DVT prophylaxis FULL CODE DISPOSITION cont tele monitoring Discharge home when medically stable Follows with Dr. Emanuel for primary care Cardiology follow up with Dr Mae Vital Signs: Date Time Temp Pulse Resp B/P Pulse Ox O2 Delivery O2 Flow Rate FiO2 08/25/16 08:16 36.8 72 18 138/62 96 08/25/16 08:00 Room Air 08/25/16 04:00 Room Air 08/25/16 04:00 37.0 72 18 118/64 95 Room Air 08/25/16 00:00 Room Air 08/25/16 00:00 37.1 74 20 111/77 95 Room Air 08/24/16 20:00 Room Air 08/24/16 19:12 36.8 75 18 121/73 94 Room Air 08/24/16 16:00 97 Room Air 08/24/16 15:07 37.2 74 16 96/67 95 Room Air 08/24/16 12:00 96 Room Air 08/24/16 12:00 36.9 70 15 106/69 97 Room Air Lab Results: Results Past 24 Hours Test 08/24/16 16:05 08/24/16 20:00 08/25/16 05:43 08/25/16 06:28 Range/Units Bedside Glucose 201 173 232 70-99 mg/dl White Blood Count 7.63 4.8-10.8 K/uL Red Blood Count 3.81 4.7-6.1 M/uL Hemoglobin 12.2 14.0-18.0 g/dL Hematocrit 35.3 42-52 % Mean Corpuscular Volume 92.7 80-100 fL Mean Corpuscular Hemoglobin 32.0 25-34 pg Mean Corpuscular Hemoglobin Concent 34.6 32-36 g/dl RDW Standard Deviation 41.6 36.4-46.3 fL RDW Coefficient of Variation 12.2 11.5-14.5 % Platelet Count 204 130-400 K/uL Mean Platelet Volume 10.1 7.4-10.4 fL Activated Partial Thromboplast Time 26.8 21.0-31.0 SECONDS Partial Thromboplastin Ratio 1.0 Sodium Level 142 136-145 mmol/L Potassium Level 4.2 3.5-5.1 mmol/L Chloride Level 110 98-107 mmol/L Carbon Dioxide Level 28 21-32 mmol/L Anion Gap 4.0 3-11 mmol/L Blood Urea Nitrogen 15 7-18 mg/dl Creatinine 1.50 0.60-1.40 mg/dl Est Creatinine Clear Calc Drug Dose 61.4 ml/min Estimated GFR () 57.0 Estimated GFR (Non- 49.2 BUN/Creatinine Ratio 9.7 10-20 Random Glucose 213 70-99 mg/dl Calcium Level 8.1 8.5-10.1 mg/dl Magnesium Level 1.7 1.8-2.4 mg/dl
[2016-08-24] MEDS ORDERED: SODIUM CHLORIDE 0.9% 1000ML 1,000 ML IV SCH (21:45)
[2016-08-24] MEDS: HEPARIN SOD 5000 UNIT/0.5 ML CARP SQ SCH (22:07)
[2016-08-25] VITALS: BP 111/77; PULSE 74; TEMP 37.1; O2SAT 95
[2016-08-25 04:00] VITALS: BP 118/64; PULSE 72; TEMP 37; O2SAT 95
[2016-08-25 06:08] LABS: HEMATOCRIT 35.3 % (42-52); MEAN CELL VOLUME 92.7 fL (80-100); MEAN CORPUSCULAR HGB CONC 34.6 g/dl (32-36); MEAN PLATELET VOLUME 10.1 fL (7.4-10.4); PLATELET COUNT 204 K/uL (130-400); RED BLOOD COUNT 3.81 M/uL (4.7-6.1); WHITE BLOOD COUNT 7.63 K/uL (4.8-10.8)
[2016-08-25] MEDS: HEPARIN SOD 5000 UNIT/0.5 ML CARP SQ SCH ×2 (06:13→14:00)
[2016-08-25 06:37] LABS: BUN/CREATININE RATIO 9.7 (10-20); CALCIUM 8.1 mg/dl (8.5-10.1); CREATININE 1.5 mg/dl (0.60-1.40); MAGNESIUM 1.7 mg/dl (1.8-2.4); POTASSIUM 4.2 mmol/L (3.5-5.1)
[2016-08-25] MEDS: LORATADINE 10 MG TAB PO PRN (07:39)
[2016-08-25] MEDS: PANTOprazole SOD 40 MG TAB PO SCH (07:39)
[2016-08-25] MEDS: ASPIRIN 81 MG ECTAB PO SCH (07:39)
[2016-08-25] MEDS: METOPROLOL TARTRATE 25 MG TAB PO SCH (07:40)
[2016-08-25] MEDS: ATORVASTATIN 40 MG TAB PO SCH (07:41)
[2016-08-25] MEDS: INSULIN ASPART 100 UNITS/ML 3 ML PEN SC SCH ×3 (07:45→16:46)
--- NOTE | 2016-08-25 07:58 | Pharmacy Progress Note ---
Glycemic Control: Progress Nt Date of Service August 25, 2016. Scope Glycemic Pharmacist consulted by Shavonne Wilcox PA-C on 08/23/16 for glycemic control and to write orders per [facility] inpatient glycemic control protocol. Objective Accuchecks BSG (last 24hrs): Test 08/24/16 11:22 08/24/16 16:05 08/24/16 20:00 08/25/16 05:43 Bedside Glucose 200 mg/dl (70-99) 201 mg/dl (70-99) 173 mg/dl (70-99) Random Glucose 213 mg/dl (70-99) Test 08/25/16 06:28 Bedside Glucose 232 mg/dl (70-99) Laboratory Data (last 24hrs) Test 08/25/16 05:43 Anion Gap 4.0 mmol/L BUN/Creatinine Ratio 9.7 Blood Urea Nitrogen 15 mg/dl Creatinine 1.50 mg/dl Potassium Level 4.2 mmol/L Sodium Level 142 mmol/L White Blood Count 7.63 K/uL HbA1c: Test 08/23/16 15:25 Hemoglobin A1c 10.8 % (4.5-5.6) H Recent Pertinent Medications Outpatient Anti-diabetic Regimen: (need to clarify with patient as med rec/ versus CDE note different) * Lantus 25 units HS * Glyburide 10 mg BID * Metformin 1 g PO BIDM The patient is currently receiving: * Basal insulin: Lantus 18 units at bedtime * Correctional Insulin: Novolog Correction per scale ACHS Goal Range: Low 110 mg/dL - High 140 mg/dL Correction Factor: 20 mg/dL/unit * Prandial insulin: Per carb ratio of 1 unit per 7 grams CHO consumed * Oral Agents: on hold Risk Factors for Insulin Resistance: * Diet Assessment & Plan ASSESSMENT: * 61 yo diabetic M admitted from [facility] s/p [facility] and initiated on heparin drip * A1c from 2016 showed good glycemic control; however most recent A1c yesterday 10.8% indicative of poor glycemic control * Spoke with CDE yesterday regarding patient's home management * Cost issues are preventing patient from taking Lantus routinely causing patient to skip or reduce dosing * sites poor diet, referring to patient as "sneaky eater" * CDE also notes different Lantus and Metformin doses then what patient stated on admission--> will clarify * Patient received a total of 47 units of insulin over the past 24 hours * Originally a reduced dose of Lantus was given and patient's BSGs came down significantly * Fasting BSG this AM 232 mg/dL--> Increase Lantus back to home dose of 20 units * All pre-prandial BSGs above goal range--> Tighten Novolog * ADA & AACE recommend a goal blood sugar range 140-180 mg/dl for the majority of critically ill & non-critically ill patients. However, more stringent targets may be selected in individual cases. Tighten to 110-140 mg/dL for better control. PLAN FOR INPATIENT GLYCEMIC CONTROL: * Continue to hold glyburide as sulfonylureas are not recommended for inpatient use--> pose risk of hypoglycemia * Increase Basal insulin with LANTUS 20 units SQ HS * Correctional Insulin with NOVOLOG per scale ACHS or Q6hrs while NPO * Goal Range: Low 110 mg/dL - High 140 mg/dL * Correction Factor: 15 mg/dL/unit * Nutritional / Prandial insulin per carb ratio of 1 unit per 5 grams CHO consumed RECOMMENDATIONS FOR DISCHARGE: * As noted above, CDE states patient having cost issues and has not been taking medications X 2 weeks prior to admission * Patient does have 2 Lantus pens at home that he would like to use up * Recommend continuing Lantus 20 units HS until pens run out * Once Lantus has been used up, switch to ReliOn ([employer] brand insulin) 70/30 * Recommend 30 units with breakfast, 15 units with dinner * Spoke with patient: MUST BE TAKEN WITH FOOD * I told him this is very conservative starting dose. He HAS TO FOLLOW UP with PCP to continue to titrate this insulin to keep his blood sugars under better control. * Recommend continuing Metformin 850 mg PO BIDM * Recommend stopping Glyburide when ReliOn initiated to reduce risk of hypoglycemia * CDE has gone over technique and when to check BSGs * Please note that the plan above was derived based on current level of insulin resistance and hospital stress. These recommendations are appropriate for inpatient admission only. Plan of care upon discharge will need to be reassessed to avoid potential outpatient hypo/hyperglycemia. Thank you.
[2016-08-25 08:16] VITALS: BP 138/62; PULSE 72; TEMP 36.8; O2SAT 96
[2016-08-25] MEDS ORDERED: CLOPIDOGREL BISULFATE 75 MG TAB PO SCH (09:00)
[2016-08-25] MEDS ORDERED: ISOSORBIDE MONONITRATE 30 MG TABCR PO SCH (09:00)
[2016-08-25] MEDS ORDERED: METOPROLOL SUCC 25MG EXT REL TAB PO ONE (09:00)
--- NOTE | 2016-08-25 10:23 | Procedure Note ---
Post-Mod Sedation Assessment General Date of Moderate Sedation August 25, 2016. Vital Signs: Vital Signs Past 12 Hours Date Time Temp Pulse Resp B/P Pulse Ox O2 Delivery O2 Flow Rate FiO2 08/25/16 08:16 36.8 72 18 138/62 96 08/25/16 08:00 Room Air 08/25/16 04:00 Room Air 08/25/16 04:00 37.0 72 18 118/64 95 Room Air 08/25/16 00:00 Room Air 08/25/16 00:00 37.1 74 20 111/77 95 Room Air Review - Discharge Criteria Vital Signs Stable: Yes Alert/Oriented/Conversant: Yes Returned to Baseline Mental St: Yes Nausea Absent/Minimal: Yes Pain/Discomfort/Absent/Minimal: Yes Normal/Baseline Respirations: Yes Active Bleeding?: No Pt Received D/C Instructions: N/A Specific Proced. D/C Criteria Distal Pulses Present (Cardiac: Yes Groin site assessed-Card Cath: Yes Voided Prior To Discharge: N/A Discharged Patients Adult Escort/Transportation: N/A
[2016-08-25] MEDS ORDERED: LISINOPRIL 5 MG TAB PO ONE (10:30)
--- NOTE | 2016-08-25 10:36 | Cardiology Follow-Up ---
Subjective General Date of Service: August 25, 2016. Pt evaluation today including: conversation w/ patient, physical exam, chart review, lab review, review of studies, conversation w/ enrollment consultant, review of inpatient medication list History of Present Illness The patient is a 61 year old male seen in follow-up. Denies chest discomfort or shortness of breath. No dysrhythmias on telemetry. Mild groin discomfort noted. No ecchymosis or hematoma. Denies orthopnea, PND, or palpitations. is present at bedside. Allergies Coded Allergies: No Known Allergies (Unverified , 10/30/02) Social History Smoking Status: Former Smoker Hx Tobacco Use In Past Year?: No Hx Alcohol Use - Type And Amou: No Hx Substance Use - Type And Am: No Review of Systems Respiratory: No cough, No dyspnea at rest, No hemoptysis, No shortness of breath, No wheezing Cardiac: No PND, No chest pain, No edema, No orthopnea, No palpitations Physical Exam Vital Signs Last Vital Signs Documentation Date Time Temp Pulse Resp B/P Pulse Ox O2 Delivery O2 Flow Rate FiO2 08/25/16 08:16 36.8 72 18 138/62 96 08/25/16 08:00 Room Air 08/24/16 07:51 2.0 Physical Exam Constitutional: General Apperance: well-nourished, obese Level of Distress: NAD Head: normocephalic, atraumatic ENMT: normal ENT inspection Neck: supple, trachea midline Lungs: Auscultation: no wheezing, no rales/crackles, no rhonchi Cardiovascular: Heart Auscultation: RRR, normal S1, normal S2, no murmurs Peripheral Pulses: Radial Pulse: normal on the right Femoral Pulse: normal on the right Dorsalis Pedis Pulse: normal on the right Abdomen: Bowel Sounds: normal Inspection & Palpation: soft, non-distended, no tenderness, guarding & rebound Extremities: no cyanosis, no edema, no clubbing, no ulcers Neurologic: Gait & Station: pertinent finding (No focal deficit) Cranial Nerves: grossly intact Assessment and Plan Assessment and Plan FINAL IMPRESSION: 1. [id number] elevation myocardial infarction. - Cardiac catheterization demonstrating 100% occlusion of the proximal right coronary artery and moderate proximal obtuse marginal branch vessel disease - Medical management recommended 2. Noncompliance. 3. Inferior and posterior wall motion abnormality with preserved LV systolic function. 4. Dyslipidemia - uncontrolled. 5. Former tobacco abuse. 6. 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 7. Acute on chronic renal insufficiency. - creatine improved today 8. DM-2 PLAN AND RECOMMENDATIONS: Isosorbide monohydrate and Plavix added. Metoprolol tartrate will be transitioned to Toprol-XL. Lisinopril restarted today. Patient agreeable to cardiac rehabilitation. Will place referral for [facility]IR[facility] Lyles. Appropriate use of sublingual nitroglycerin reviewed. I will arrange for close cardiology follow- up in 2-4 weeks. Patient and his are agreeable to current plan, however, will report any change or decline in clinical status. Post catheterization activity restrictions reviewed: * Do not drive or operate any motorized equipment for the next three days. * Limit stair usage (2 or 3 trips a day only) for the next three days. * Do not lift anything heavier than 10 pounds for the next five days. * Do not engage in vigorous exercise or any sports for the next five days. * You may shower the day after your procedure, but do not immerse the area for three days. Cleanse the site gently with soap and water. SPECIAL CARE INSTRUCTIONS: * You may replace the pressure dressing or band-aid the morning after the procedure. * After your procedure, it is normal to have a small bruise or small lump at the site. Examine your site daily for any change in the bruise or lump, redness, swelling, drainage or numbness. Notify your doctor if any change. BLEEDING: * If there is a small amount of bleeding at the site, lie down and apply firm pressure with a clean cloth for ten minutes. When the bleeding stops, lie quietly keeping the procedure limb straight for six hours. Notify your doctor as soon as possible. * If the bleeding does not stop after ten minutes or if there is a large amount of bleeding or spurting, call 911 immediately. Continue to lie down and hold firm pressure until help arrives. SKIN IRRITATION: * You may experience some redness and/or swelling in the area where radiation was administered. If any skin irritation occurs, please contact your family physician. Laboratory Results Last 24 Hours Test 08/24/16 11:22 08/24/16 16:05 08/24/16 20:00 08/25/16 05:43 Bedside Glucose 200 mg/dl 201 mg/dl 173 mg/dl White Blood Count 7.63 K/uL Red Blood Count 3.81 M/uL Hemoglobin 12.2 g/dL Hematocrit 35.3 % Mean Corpuscular Volume 92.7 fL Mean Corpuscular Hemoglobin 32.0 pg Mean Corpuscular Hemoglobin Concent 34.6 g/dl RDW Standard Deviation 41.6 fL RDW Coefficient of Variation 12.2 % Platelet Count 204 K/uL Mean Platelet Volume 10.1 fL Activated Partial Thromboplast Time 26.8 SECONDS Partial Thromboplastin Ratio 1.0 Sodium Level 142 mmol/L Potassium Level 4.2 mmol/L Chloride Level 110 mmol/L Carbon Dioxide Level 28 mmol/L Anion Gap 4.0 mmol/L Blood Urea Nitrogen 15 mg/dl Creatinine 1.50 mg/dl Est Creatinine Clear Calc Drug Dose 61.4 ml/min Estimated GFR () 57.0 Estimated GFR (Non- 49.2 BUN/Creatinine Ratio 9.7 Random Glucose 213 mg/dl Calcium Level 8.1 mg/dl Magnesium Level 1.7 mg/dl Test 08/25/16 06:28 Bedside Glucose 232 mg/dl
[2016-08-25] MEDS ORDERED: PLV75 PO (11:11)
[2016-08-25] MEDS ORDERED: NTRSLP4 SL (11:11)
[2016-08-25] MEDS ORDERED: LPT40 PO (11:11)
[2016-08-25] MEDS ORDERED: TPRSR25 PO (11:11)
--- NOTE | 2016-08-25 11:14 | Discharge Instructions ---
Discharge Instructions Date of Service August 25, 2016. Admission Reason for Admission: Myocardial Infarction Discharge Discharge Diagnosis / Problem: NSTEMI/POORLY CONTROLLED DM Discharge Goals Goal(s): Diagnostic testing, Therapeutic intervention Activity Recommendations Activity Limitations: as noted below Driving or Machine Use: NOTED BELOW Post catheterization activity restrictions reviewed: * Do not drive or operate any motorized equipment for the next three days. * Limit stair usage (2 or 3 trips a day only) for the next three days. * Do not lift anything heavier than 10 pounds for the next five days. * Do not engage in vigorous exercise or any sports for the next five days. * You may shower the day after your procedure, but do not immerse the area for three days. Cleanse the site gently with soap and water. SPECIAL CARE INSTRUCTIONS: * You may replace the pressure dressing or band-aid the morning after the procedure. * After your procedure, it is normal to have a small bruise or small lump at the site. Examine your site daily for any change in the bruise or lump, redness, swelling, drainage or numbness. Notify your doctor if any change. BLEEDING: * If there is a small amount of bleeding at the site, lie down and apply firm pressure with a clean cloth for ten minutes. When the bleeding stops, lie quietly keeping the procedure limb straight for six hours. Notify your doctor as soon as possible. * If the bleeding does not stop after ten minutes or if there is a large amount of bleeding or spurting, call 911 immediately. Continue to lie down and hold firm pressure until help arrives. SKIN IRRITATION: * You may experience some redness and/or swelling in the area where radiation was administered. If any skin irritation occurs, please contact your family physician. . Instructions / Follow-Up Instructions / Follow-Up HOSPITAL FOLLOW UP ON 09/01/2016 @ 1:00 PM WITH Josselin Leon DO [facility], [place] CARDIOLOGY FOLLOW UP WITH DR CHRISTINE GUTIÉRREZ IN 2-4 WEEKS , OFFICE WILL CALL WITH APPOINTMENT FOLLOW UP AT CARDIAC REHAB AT [facility] DO NOT TAKE MOTRIN, ALEVE , IBUPROFEN, NAPROXEN , WILL CAUSE WORSENING OF OR RENAL FUNCTION LAB WORK ON 09/01/16 WITH OFFICE VISIT CHECK BLOOD SUGAR AT LEAST TWICE DAILY FASTING -BEFORE BREAKFAST AND BEFORE DINNER -PRIOR TO GIVING INSULIN 70/30 PLEASE KEEP LOG OF YOUR BLOOD SUGAR , BRING WITH NEXT PHYSICIAN VISIT DIABETIC /INSULIN REGIMEN : * Recommend continuing Lantus 20 units HS until pens run out * Once Lantus has been used up, switch to ReliOn ([employer] brand insulin) 70/30 * Recommend 30 units with breakfast, 15 units with dinner -CHECK BLOOD SUGAR BEFORE BREAK FAST AND BEFORE DINNER * Spoke with patient: MUST BE TAKEN WITH FOOD * FOLLOW UP with Family physician to continue to titrate this insulin to keep blood sugars under better control. * Continuing Metformin 850 mg PO BID with meals * DO NOT TAKE METFORMIN TODAY ( DUE TO CONTRAST EXPOSURE WITH CARDIAC CATH , CAN CAUSE WORSENING OF YOUR KIDNEY FUNCTION ) ; YOU CAN START TAKING IT FORM TOMORROW 08/26/16 * Recommend stopping Glyburide when ReliOn initiated to reduce risk of LOW BLOOD SUGAR Home Care: * Take your medications exactly as directed. Don't skip doses. * Remember that recovery after a heart attack takes time. Plan to rest for at lease 4-8 weeks while you recover. Then return to normal activity when your doctor says it's okay. * Ask your doctor about joining a heart rehabilitation program. * Tell your doctor if you are feeling depressed. Feelings of sadness are common after a heart attack, but it is important that you speak to someone if you are feeling overwhelmed by these feelings. * If you are having chest pain, call 911 for an ambulance. Do NOT drive yourself to the hospital. * Ask your family members to learn CPR. * Learn to take your own blood pressure and pulse. Keep a record of your results. Ask your doctor when you should seek emergency medical attention. He or she will tell you which blood pressure reading is dangerous. Lifestyle Changes: * Maintain a healthy weight. Get help to lose any extra pounds. * Cut back on salt. * Limit canned, dried, packaged, and fast foods. * Don't add salt to your food. * Season foods with herbs instead of salt when you cook. * Break the smoking habit. Enroll in a stop-smoking program to improve your chances of success. * Limit fatty foods. * Check your lipid levels regularly. (Your doctor can show you how to do this.) * Build up your activity according to your doctor's recommendation. * Ask your doctor when it's okay to resume sexual activity. * Tell your doctor about any erectile dysfunction (ED) medication you are taking. Some ED medications are not safe if you take certain heart medications. * Try to manage stress. Follow Up: It is important for you to keep your follow up appointments with your medical provider. Current Hospital Diet Patient's current hospital diet: AHA Diet (Heart Healthy), Diabetes Type 2 Diet Discharge Diet Recommended Diet: AHA Diet (Heart Healthy), Diabetes Type 2 Diet Pending Studies Studies pending at discharge: yes List of pending studies: LAB WORK : BASIC METABOLIC PANEL/MAGNESIUM LEVEL ON 09/01/16 Laboratory Results Hemoglobin A1c Test 08/23/16 15:25 Range/Units Estimated Average Glucose 263 mg/dl Hemoglobin A1c 10.8 H 4.5-5.6 % Medical Emergencies . Who to Call and When: Medical Emergencies: If at any time you feel your situation is an emergency, please call 911 immediately. Call 911 immediately or go to your nearest Emergency Room if you experience any of the following: Warning Signs and Symptoms of a Heart Attack * Chest pain that is not relieved by medication * Shortness of breath . Non-Emergent Contact Non-Emergency issues call your: Primary Care Provider, [employer] . . "Provider Documentation" section prepared by Alva Julio. . AMI Core Measures Reason no ASA as I/P: Treatment provided - N/A Reason no ASA at D/C: Treatment provided - N/A Reason no statin as I/P: Treatment provided - N/A Reason no statin at D/C: Treatment provided - N/A VTE Core Measure Inpt VTE Proph given/why not?: Unfractionated heparin SQ, Other Anticoagulation [place] Drug Monitoring Program Search Results: no issues identified
[2016-08-25 11:47] VITALS: BP 143/67; PULSE 79; TEMP 36.8; O2SAT 96
[2016-08-25] MEDS ORDERED: MAGNESIUM OXIDE 400 MG TAB PO ONE (15:00)
[2016-08-25] MEDS ORDERED: METFORMIN HCL 850 MG TAB PO SCH (16:45)
[2016-08-25 17:12] VITALS: BP 143/67; PULSE 79; TEMP 36.8; O2SAT 96
--- NOTE | 2016-08-25 17:51 | Discharge Summary ---
Discharge Summary Date of Service August 25, 2016. Discharge Summary Admission Date: August 23, 2016 at 14:30 Discharge Date: August 25, 2016 Discharge Disposition: Home Principal Diagnosis: NSTEMI/POORLY CONTROLLED DM Consultations: [facility] CARDIOLOGY DR WHITE Medication Reconciliation New Medications: Atorvastatin (Atorvastatin Calcium) 40 Mg Tab 80 MG PO QAM for 30 Days, #60 TAB 4 Refills Clopidogrel Bisulfate (Clopidogrel) 75 Mg Tab 75 MG PO QAM for 30 Days, #30 TAB 4 Refills Metoprolol Succinate (Metoprolol Succinate ER) 25 Mg Tabcr 25 MG PO QAM for 30 Days, #30 TABS 4 Refills Nitroglycerin (Nitrostat) 0.4 Mg/1 Tab Subl 0.4 MG SL UD PRN for Chest Pain, #30 TABS 6 Refills Continued Medications: Aspirin Enteric Coated (Ecotrin Or Generic) 81 Mg Tab 81 MG PO DAILY, TAB Insulin Glargine (Lantus Solostar) 100 Unit/Ml Inj 20 UNIT SC HS, PEN Lisinopril (Zestril) 10 Mg Tab 5 MG PO DAILY Loratadine (Claritin) 10 Mg Cap 10 MG PO DAILY PRN for Nasal Congestion, CAP Metformin Hcl (Glucophage) 850 Mg Tab 850 MG PO BIDM, TAB Omeprazole (Prilosec) 40 Mg Cap 40 MG PO DAILY, CAP Ondansetron Odt (Zofran Odt) 8 Mg Soltab 8 MG SL BID PRN for Nausea, TAB Discontinued Medications: Atorvastatin (Lipitor) 40 Mg Tab 80 MG PO QAM for 30 Days, 2 Refills Glyburide (Diabeta *) 5 Mg Tab 10 MG PO BID Metoprolol Tartrate (Lopressor) (Lopressor) 25 Mg Tab 12.5 MG PO BID for 30 Days, 2 Refills Referrals At Discharge Follow up Referrals: [facility] [employer] [facility] Referral - Within 6 Weeks with Piotr Means DO Admission Information HPI (per Admitting provider): This is a 61 year old male with PMH of CAD s/p JENNIFER to RCA in 2011, DM type 2, dyslipidemia, GERD, medication non-compliance, who presents as a transfer from [facility] for NSTEMI. Patient was admitted yesterday to [facility] after presenting with chest pain. CXR yesterday at [facility] was unremarkable. EKG 08/22/16 at [facility] showed sinus rhythm with 1st degree AVB, possible age indeterminate inferior infarct, and T wave inversion in III, no ST changes. Initial troponin was negative but trended up to 2.05 yesterday evening and 11.5 this morning. Creat was elevated to 1.7 at [facility] yesterday. Baseline creat is 1.4. LDL was 170. Patient's blood sugar was elevated in 300s- 400s. Yesterday evening at outside hospital patient was given ASA 324 mg and 500 mL NSS. This morning at outside hospital patient was given Toprol 12.5 mg, lisinopril 5 mg, aspirin 81 mg, and Lipitor 80 mg. He was on Heparin SQ for DVT prophylaxis. Heparin drip was ordered but not administered prior to transfer. Patient states chest pain started at 3 pm yesterday while he was active covering his boat and carrying plants. Pain was located in substernal area with radiation to bilateral arms and between his shoulder blades. He describes pain as tightness and "indigestion". He states it felt similar to prior MN. He reports associated SOB, diaphoresis, and dizziness. states his color appeared ashen. Chest pain and associated symptoms resolved after 5 hours. He is usually able to climb 1 flight of stairs, burgos, fish, garden without CP or KUMAR. Patient was nauseous earlier today, which is a chronic intermittent problem for him, which resolved with Zofran given at [facility]. Currently he is chest pain free and otherwise feeling comfortable lying in bed. Denies fever, chills, URI symptoms, cough, orthopnea, palpitations, reflux, vomiting, abdominal pain, diarrhea, dysuria, frequency, calf pain, edema, history of abnormal bleeding. Pt reports noncompliance with all medications for approximately 2 weeks. States he does not like taking pills. Has not been checking blood sugar at home. Physical Exam (per Admitting): General Appearance: WD/WN, no apparent distress, + pertinent finding (alert cooperative 61 year old male, lying in bed, no distress, at bedside) Head: normocephalic, atraumatic Eyes: normal inspection ENT: hearing grossly normal, pharynx normal Neck: no JVD, trachea midline Respiratory/Chest: lungs clear, normal breath sounds, no respiratory distress, no accessory muscle use Cardiovascular: regular rate, rhythm (distant heart sounds), no murmur, normal peripheral pulses Abdomen/GI: normal bowel sounds, non tender, soft Extremities/Musculoskelatal: no calf tenderness, normal capillary refill, no pedal edema Neurologic/Psych: alert, normal mood/affect, oriented x 3, + pertinent finding (no focal deficit on gross examination) Skin: normal color, warm/dry, no rash (no rash on the chest) Hospital Course No complain of chest pain or SOB ambulating independently , no pain at cath site evaluate by Cardiology stable to be discharge home discharge instruction with caution of activity post cath explain to patient in detail pt 's present at bedside , re emphasized the importance of taking meds as instructed to prevent future MN P/E: Gen: no sign of distress HEENT: sclera non icteric LUNGS: CTA HEART : regular S1/S2 ABDOMEN:soft, non tender EXT: cath site on rt groin, healing well , no pain or erythema or swelling NEURO: AAO X3, no focal deficit NSTEMI History of CAD s/p JENNIFER to RCA in 2011 with diffuse residual disease Has been noncompliant with all medications x 2 weeks; future compliance strongly recommended and patient is agreeable transferred from [facility] for NSTEMI need for cardiac cath pt -presented with chest pain , Troponin trended up to 11.5 at [facility] -> 15.3 at [facility] EKG- inferior T wave inversion, no ST change remains chest pain free after arrival to [facility] echo: 08/23/16 * The study was technically adequate. * Compared to prior study, there is no significant change. * Ejection Fraction = 55-60%. * There is mild concentric left ventricular hypertrophy. * Moderate inferior and posterior hypokinesis. * There is mild tricuspid regurgitation. * Grade I diastolic dysfunction, (abnormal relaxation pattern). pt was treated with IV heparin with bolus after arrival to floor , ordered for 1/2 inch nitro paste pt is continued on beta chica, aspirin, statin which were resumed at [facility] Hold FOX-I due to SHMUEL Consulted cardiology; Dr. Means s/p cardiac cath shows severe CAD 100 % ostial RCA occlusion with left to right collaterals 60 % proximal OM stenosis recommend medical management started on Imdur 30 mg PO daily ( nitro paste Discontinued ) high intensity statin therapy with max dose Lipitor 80 mg daily for added Plavix, cont statin Beta chica Toprol XL 25 mg daily ACEI kept on hold for ACEI may consider resuming in future as renal function stabilizes /improves to baseline will need close follow up with Cardiology -follows with Dr White in office Cardiac rehab consult pt is counselled for medication compliance , diet , exercise and life style modification stable to be discharged home today SHMUEL ON CKD STAGE III improved Creat elevated 1.7 cont IV fluid as pt got contrast dye load for cardiac cath today cont to hold lisinopril out patient LAB : BMP check DM TYPE 2/POORLY CONTROLLED presented with hyperglycemia due to not taking any meds for x 2 weeks Supposed to be on Lantus 20 units HS, metformin 850 mg BIDM, glyburide 10 mg BIDM A1c 10 .9 indicated poor glycemic control Metformin , glyburide is kept on hold Appreciate Consult form pharmacy for glycemic control appreciate educator senior clinical consult for diabetic management pt mentions skipping dose of Lantus -as the co pay of the insulin was too high .needed to ration the dose pt will be discharged on Novolin 70/30 -cheaper option Glyburide will be discontinued given glucometer and instructions to check blood glucose discharge home today close follow up with Family physician for diabetic management will benefit with Diabetic clinic referral DYSLIPIDEMIA LDL is 170 at [facility] Has been non-compliant with statin Lipitor 80 mg PO daily goal LDL < 70 given severe CAD will need repeat Fasting lipid panel checked on 3-6 months to assess improvement of LDL pt is counselled for low fat diet , lifestyle modification and exercise Cardiac rehab consulted -pt will follow at [facility] cardiac rehab GERD on PPI DVT PROPHYLAXIS Sub q heparin for DVT prophylaxis FULL CODE DISPOSITION Discharge home today Follows with Dr. Emanuel for primary care Cardiology follow up with Dr White Total time spent on discharge = 40 MINS This includes examination of the patient, discharge planning, medication reconciliation, and communication with other providers. Discharge Instructions Discharge Instructions Date of Service August 25, 2016. Admission Reason for Admission: Myocardial Infarction Discharge Discharge Diagnosis / Problem: NSTEMI/POORLY CONTROLLED DM Discharge Goals Goal(s): Diagnostic testing, Therapeutic intervention Activity Recommendations Activity Limitations: as noted below Driving or Machine Use: NOTED BELOW Post catheterization activity restrictions reviewed: * Do not drive or operate any motorized equipment for the next three days. * Limit stair usage (2 or 3 trips a day only) for the next three days. * Do not lift anything heavier than 10 pounds for the next five days. * Do not engage in vigorous exercise or any sports for the next five days. * You may shower the day after your procedure, but do not immerse the area for three days. Cleanse the site gently with soap and water. SPECIAL CARE INSTRUCTIONS: * You may replace the pressure dressing or band-aid the morning after the procedure. * After your procedure, it is normal to have a small bruise or small lump at the site. Examine your site daily for any change in the bruise or lump, redness, swelling, drainage or numbness. Notify your doctor if any change. BLEEDING: * If there is a small amount of bleeding at the site, lie down and apply firm pressure with a clean cloth for ten minutes. When the bleeding stops, lie quietly keeping the procedure limb straight for six hours. Notify your doctor as soon as possible. * If the bleeding does not stop after ten minutes or if there is a large amount of bleeding or spurting, call 911 immediately. Continue to lie down and hold firm pressure until help arrives. SKIN IRRITATION: * You may experience some redness and/or swelling in the area where radiation was administered. If any skin irritation occurs, please contact your family physician. . Instructions / Follow-Up Instructions / Follow-Up HOSPITAL FOLLOW UP ON 09/01/2016 @ 1:00 PM WITH Josselin Leon DO [facility] CARDIOLOGY FOLLOW UP WITH DR CHRISTINE GUTIÉRREZ IN 2-4 WEEKS , OFFICE WILL CALL WITH APPOINTMENT FOLLOW UP AT CARDIAC REHAB AT [facility] DO NOT TAKE MOTRIN, ALEVE , IBUPROFEN, NAPROXEN , WILL CAUSE WORSENING OF OR RENAL FUNCTION LAB WORK ON 09/01/16 WITH OFFICE VISIT CHECK BLOOD SUGAR AT LEAST TWICE DAILY FASTING -BEFORE BREAKFAST AND BEFORE DINNER -PRIOR TO GIVING INSULIN 70/30 PLEASE KEEP LOG OF YOUR BLOOD SUGAR , BRING WITH NEXT PHYSICIAN VISIT DIABETIC /INSULIN REGIMEN : * Recommend continuing Lantus 20 units HS until pens run out * Once Lantus has been used up, switch to ReliOn ([employer] brand insulin) 70/30 * Recommend 30 units with breakfast, 15 units with dinner -CHECK BLOOD SUGAR BEFORE BREAK FAST AND BEFORE DINNER * Spoke with patient: MUST BE TAKEN WITH FOOD * FOLLOW UP with Family physician to continue to titrate this insulin to keep blood sugars under better control. * Continuing Metformin 850 mg PO BID with meals * DO NOT TAKE METFORMIN TODAY ( DUE TO CONTRAST EXPOSURE WITH CARDIAC CATH , CAN CAUSE WORSENING OF YOUR KIDNEY FUNCTION ) ; YOU CAN START TAKING IT FORM TOMORROW 08/26/16 * Recommend stopping Glyburide when ReliOn initiated to reduce risk of LOW BLOOD SUGAR Home Care: * Take your medications exactly as directed. Don't skip doses. * Remember that recovery after a heart attack takes time. Plan to rest for at lease 4-8 weeks while you recover. Then return to normal activity when your doctor says it's okay. * Ask your doctor about joining a heart rehabilitation program. * Tell your doctor if you are feeling depressed. Feelings of sadness are common after a heart attack, but it is important that you speak to someone if you are feeling overwhelmed by these feelings. * If you are having chest pain, call 911 for an ambulance. Do NOT drive yourself to the hospital. * Ask your family members to learn CPR. * Learn to take your own blood pressure and pulse. Keep a record of your results. Ask your doctor when you should seek emergency medical attention. He or she will tell you which blood pressure reading is dangerous. Lifestyle Changes: * Maintain a healthy weight. Get help to lose any extra pounds. * Cut back on salt. * Limit canned, dried, packaged, and fast foods. * Don't add salt to your food. * Season foods with herbs instead of salt when you cook. * Break the smoking habit. Enroll in a stop-smoking program to improve your chances of success. * Limit fatty foods. * Check your lipid levels regularly. (Your doctor can show you how to do this.) * Build up your activity according to your doctor's recommendation. * Ask your doctor when it's okay to resume sexual activity. * Tell your doctor about any erectile dysfunction (ED) medication you are taking. Some ED medications are not safe if you take certain heart medications. * Try to manage stress. Follow Up: It is important for you to keep your follow up appointments with your medical provider. Current Hospital Diet Patient's current hospital diet: AHA Diet (Heart Healthy), Diabetes Type 2 Diet Discharge Diet Recommended Diet: AHA Diet (Heart Healthy), Diabetes Type 2 Diet Pending Studies Studies pending at discharge: yes List of pending studies: LAB WORK : BASIC METABOLIC PANEL/MAGNESIUM LEVEL ON 09/01/16 Laboratory Results Hemoglobin A1c Test 08/23/16 15:25 Range/Units Estimated Average Glucose 263 mg/dl Hemoglobin A1c 10.8 H 4.5-5.6 % Medical Emergencies . Who to Call and When: Medical Emergencies: If at any time you feel your situation is an emergency, please call 911 immediately. Call 911 immediately or go to your nearest Emergency Room if you experience any of the following: Warning Signs and Symptoms of a Heart Attack * Chest pain that is not relieved by medication * Shortness of breath . Non-Emergent Contact Non-Emergency issues call your: Primary Care Provider, [employer] Put In Worker . . "Provider Documentation" section prepared by Alva Julio. . AMI Core Measures Reason no ASA as I/P: Treatment provided - N/A Reason no ASA at D/C: Treatment provided - N/A Reason no statin as I/P: Treatment provided - N/A Reason no statin at D/C: Treatment provided - N/A VTE Core Measure Inpt VTE Proph given/why not?: Unfractionated heparin SQ, Other Anticoagulation [place] Drug Monitoring Program Search Results: no issues identified Additional Copies To Josselin Leon D.O., Thomas O.,
[2016-08-25] MEDS ORDERED: INSULIN GLARGINE SOLOSTAR 100 UNITS/ML 3 ML PEN SC SCH (18:00)
[2016-08-26] MEDS ORDERED: METOPROLOL SUCC 25MG EXT REL TAB PO SCH (09:00)
[2016-08-26] MEDS ORDERED: LISINOPRIL 5 MG TAB PO SCH (09:00)
== END 2016-08-25 17:41 | disposition home or self-care (01) | DRG 281 ==
LOC: C.2T 14:30
PROVIDERS: ADMIT Hospitalist; ATTEND Hospitalist
PROC: 4A023N7 Measurement of Cardiac Sampling and Pressure, Left Heart, Percutaneous Approach (ICD-10-PCS; principal; 2016-08-24 07:08)
PROC: B2111ZZ Fluoroscopy of Multiple Coronary Arteries using Low Osmolar Contrast (ICD-10-PCS; principal; 2016-08-24 07:08)
DX: I21.4 Non-ST elevation (NSTEMI) myocardial infarction (principal); R44.9 Unspecified symptoms and signs involving general sensations and perceptions; N17.9 Acute kidney failure, unspecified; I25.10 Atherosclerotic heart disease of native coronary artery without angina pectoris; I25.82 Chronic total occlusion of coronary artery; E78.5 Hyperlipidemia, unspecified; K21.9 Gastro-esophageal reflux disease without esophagitis; N18.3 Chronic kidney disease, stage 3 (moderate); E11.21 Type 2 diabetes mellitus with diabetic nephropathy; I25.2 Old myocardial infarction; Z95.5 Presence of coronary angioplasty implant and graft; Z91.14 Patient's other noncompliance with medication regimen; Z82.49 Family history of ischemic heart disease and other diseases of the circulatory system